=== PATIENT | female | born 1995 | race Caucasian/White ===

== ENCOUNTER 2017-01-17 02:15 | Emergency (ER) | payer OTHER ==
[~2017-01-17] VITALS: Ht 162.6 cm; Wt 57.0 kg
[2017-01-17 02:33] VITALS: TEMP 36.8; O2SAT 99; Ht 162.6 cm; Wt 57.0 kg
[2017-01-17 03:17] LABS: BUN/CREATININE RATIO 18.6 (10-20); CALCIUM 8.3 mg/dl (8.5-10.1); CREATININE 0.76 mg/dl (0.60-1.20); POTASSIUM 3.9 mmol/L (3.5-5.1)
--- NOTE | 2017-01-17 08:09 | EMERGENCY ROOM VISIT NOTE ---
History Report prepared by Cam: Alexey Mata Under the Supervision of: Dr. Jose Alejandro Khan M.D. First contact with patient: 02:16 Chief Complaint: ALCOHOL OVERDOSE Stated Complaint: ETOH Nursing Triage Summary: pt vomited on the [employer] [place] then ran off and pd found her outside her residence, pt blew a .208 for pd History of Present Illness The patient is a 21 year old female who presents to the Emergency Room via ALS after being found intoxicated prior to arrival at the ED. The patient had one episode of vomiting on the [employer] bus. She notes she had been drinking 'jungle juice' and beer, but is unsure of how much. She is not on any medications and denies any medical complaints at this time. The patient's HPI is limited due to intoxication. Source of History: patient, EMS History Limited By: intoxication Onset: prior to arrival Position: other (global) Review of Systems The patient's ROS is limited due to intoxication. Past Medical & Surgical Medical Problems: (1) No Known Active Medical Problems Family History No pertinent family history Social History Smoking Status: Never Smoker Alcohol Use: occasionally Housing Status: lives with roommate Occupation Status: student Current/Historical Medications Unable to Obtain Active Prescriptions or Reported Meds Physical Exam Vital Signs Date Time Temp Pulse Resp B/P Pulse Ox O2 Delivery O2 Flow Rate FiO2 01/17/17 07:29 98 18 81/43 97 Room Air 01/17/17 05:53 92 16 81/53 94 Room Air 01/17/17 05:30 92 16 01/17/17 05:00 99 18 01/17/17 04:30 87 19 01/17/17 04:00 83 17 01/17/17 03:30 79 19 01/17/17 03:13 77 01/17/17 03:00 97 18 100 01/17/17 02:33 99 Room Air 01/17/17 02:33 36.8 92 19 121/74 99 Room Air Physical Exam GENERAL: Intoxicated, awake, well appearing, no distress HENT: Normocephalic, atraumatic. Oropharynx unremarkable. EYES: PERRL. Erythematous conjunctiva. Sclera non-icteric. NECK: Supple. No nuchal rigidity. FROM. RESPIRATORY: CTA CARDIAC: RRR GI/ABDOMEN: Soft, non distended. No tenderness to palpation. No rebound or guarding. No masses. RECTAL: Deferred. MUSCULOSKELETAL: No edema. No discoloration. Gross motor strength 5/5 bilaterally. NEURO: Altered sensorium. No sensory or motor deficits noted. Speech slurred. SKIN: No rash or jaundice noted. LYMPH: No adenopathy. Medical Decision & Procedures Laboratory Results 01/17/17 02:29 Test 01/17/17 02:29 Anion Gap 11.0 mmol/L (3-11) Est Creatinine Clear Calc Drug Dose 102.0 ml/min Estimated GFR () 130.9 Estimated GFR (Non- 112.9 BUN/Creatinine Ratio 18.6 (10-20) Calcium Level 8.3 mg/dl (8.5-10.1) Ethyl Alcohol mg/dL 301.0 mg/dl (0-3) Laboratory results reviewed by me ED Course 0222: The patient was evaluated in room A9. A complete history and physical exam was performed. 0314: At this time, I reevaluated the patient and she was sleeping. 0802: I reevaluated the patient. Discussed results and discharge instructions: She verbalized understanding and agreement. The patient is ready for discharge. Medical Decision Prior records/ancillary studies reviewed. Triage Nursing notes reviewed and agree them. Additional history obtained from EMS. The patient's history was concerning for altered mental status and a possible alcohol overdose. Differential diagnosis: Etiologies such as toxicologic, infection, hypoglycemia, electrolyte abnormalities, cardiac sources, intracerebral event, neurologic, as well as others were entertained. Physical examination: As above ER treatment provided: Monitoring Aspiration precautions The patient was frequently reassessed. Diagnostic interpretation by me: Cardiac monitoring did not reveal any evidence of dysrhythmia. The labs revealed normal chemistries. The patient's blood alcohol level was 301 mg/dL Imaging studies: Deferred The patient states they have been in good health recently and had no medical complaints. No additional concerning findings were noted. The patient complained of no symptoms to suggest assault. This appears to be related to an isolated overdose of alcohol. By the evaluation outlined above emergent etiologies such as trauma, infection , hypoglycemia, electrolyte abnormalities, cardiac sources, intracerebral event , neurologic,as well as others were deemed relatively unlikely. The patient was informed about the findings as listed above. All questions were answered and the patient was pleased with the treatment. Return instructions were outlined and the patient was discharged in stable condition once their mental status improved and a safe destination was confirmed. Outpatient prescription management: None Referral: The patient was referred back to their primary care physician for follow-up in 2 to 3 days for a recheck of their current condition. The chart was completed utilizing [id number] Speech voice recognition software. Grammatical errors, random word insertions, pronoun errors, and incomplete sentences are an occasional consequence of this system due to software limitations, ambient noise, and hardware issues. Any formal questions or concerns about the content, text, or information contained within the body of this dictation should be directly addressed to the physician for clarification. Impression Primary Impression: Alcohol intoxication Scribe Attestation The scribe's documentation has been prepared under my direction and personally reviewed by me in its entirety. I confirm that the note above accurately reflects all work, treatment, procedures, and medical decision making performed by me. Departure Information Dispostion Home / Self-Care Prescriptions Unable to Obtain Active Prescriptions or Reported Meds Forms HOME CARE DOCUMENTATION FORM, IMPORTANT VISIT INFORMATION Patient Instructions Alcohol Abuse - [facility], Alcohol Intoxication - [facility], My [facility], [facility]: [employer] Students and Alcohol Related Visits Additional Instructions Do not drive or work for 24 hours. Ibuprofen may be used for headache. Eat a healthy diet and drink plenty of fluids. Refrain from alcohol use until you are 21. Return to the emergency department for fevers, vomiting, abdominal pain, chest pain, passing out, or as needed. Follow-up with your primary care physician in 2 to 3 days for a recheck of your current condition.
[2017-01-17 09:00] VITALS: BP 104/65; PULSE 72; O2SAT 99
--- NOTE | 2017-01-17 09:04 | EMERGENCY ROOM VISIT NOTE ---
ED Visit Note I received this patient in signout at the change of shift. She was awake and walking around the room. The patient was requesting discharge. She had a sober friend arrive in the emergency department. She was discharged to their care. Patient was referred to [facility] per [facility] instructions. Please refer to Dr. Khan's notes for further details.
== END 2017-01-17 08:59 | disposition home or self-care (01) ==
LOC: C.EDA 02:16
DX: F10.129 Alcohol abuse with intoxication, unspecified (principal)